=== PATIENT | male | born 1950 | race Caucasian/White ===

== ENCOUNTER 2017-05-15 16:05 | Emergency (ER) | payer OTHER ==
[2017-05-15] MEDS ORDERED: ACETAMINOPHEN 325 MG TABLET (FP) PO ONE (16:39)
[2017-05-15 16:44] VITALS: BMI 38.7
--- NOTE | 2017-05-15 16:44 | PDOC ---
Attending Attestation - Resident Resident Name: Madi Saxena - ED Attending Attestation I have performed the following: I have examined & evaluated the patient, The case was reviewed & discussed with the resident, I agree w/resident's findings & plan, Exceptions are as noted - HPI HPI: 66 yo M history HTN, afib, hemorrhagic CVA x3 presents s/p fall, sent by NH. He states that he fell as he was getting out of bed, landed on his buttocks. Denies any pain, denies head trauma. However, he states that he has a headache and stiff neck, similar to prior CVAs. Denies numbness, tingling, weakness. - Physicial Exam PE: GENERAL: Awake, alert, and fully oriented, in no acute distress HEAD: No signs of trauma EYES: PERRLA, EOMI, sclera anicteric, conjunctiva clear ENT: Auricles normal inspection, hearing grossly normal, nares patent, oropharynx clear without exudates. Moist mucosa NECK: Normal ROM, supple, no lymphadenopathy, JVD, or masses LUNGS: Breath sounds equal, clear to auscultation bilaterally. No wheezes, and no crackles HEART: Regular rate and rhythm, normal S1 and S2, no murmurs, rubs or gallops ABDOMEN: Soft, nontender, normoactive bowel sounds. No guarding, no rebound. No masses EXTREMITIES: Normal range of motion, no edema. No clubbing or cyanosis. No cords, erythema, or tenderness NEUROLOGICAL: Cranial nerves II through XII grossly intact. Normal speech, normal gait. Strength and sensation intact. SKIN: Warm, Dry, normal turgor, no rashes or lesions noted. - Medical Decision Making Pt with prior history of hemorrhagic CVA with headache, neck stiffness. Will obtain CTH.
[2017-05-15] MEDS ORDERED: ACETAMINOPHEN 325 MG TABLET (FP) ONE (16:50)
--- NOTE | 2017-05-15 16:55 | PDOC ---
History of Present Illness - General Chief Complaint: Injury Stated Complaint: FALL Time Seen by Provider: 05/15/17 16:14 - History of Present Illness Initial Comments: 05/15/17 16:45 Patient is a 66 year old male with a history of HTN, afib, cva (x3) s/p craniotomies who [facility]. The patient reports that he was getting out of bed when he slipped and fell onto his bottom. He denies any pain related to the fall, but states that upon waking this morning, he was experiencing a headache with associated neck stiffness. He states that he has had similar symptoms in the past with his previous hemorrhagic CVAs. He denies any numbness, tingling. He has residual weakness on the left side from his past CVA that is unchanged. He denies fevers, chills , SOB, chest pain, abdominal pain, or changes with bowel movements or urination. Past History - Past Medical History Allergies/Adverse Reactions: Allergies Allergy/AdvReac Type Severity Reaction Status Date / Time No Known Allergies Allergy Verified 11/21/14 06:30 Home Medications: Ambulatory Orders Acetaminophen 500 mg PO Q4H PRN 05/15/17 Atorvastatin Ca [Lipitor] 20 mg PO HS 05/15/17 Bacitracin - [Bacitracin Topical Ointment -] 1 applic TP DAILY 05/15/17 Clotrimazole 30 ml TP DAILY 05/15/17 Ferrous Sulfate 325 mg PO BID 05/15/17 Hydrochlorothiazide 25 mg PO DAILY 05/15/17 Insulin Glargine,Hum.rec.anlog [Lantus Solostar PEN (NF)] 20 units SQ HS Levothyroxine [Synthroid -] 25 mcg PO DAILY 05/15/17 Metformin HCl 1,000 mg PO BID 05/15/17 Metoprolol Tartrate 50 mg PO BID 05/15/17 Nystatin [Nyamyc] 15 gm TP DAILY 05/15/17 Silver Sulfadiazine [Silvadene] 1 applic TP DAILY 05/15/17 Cardiac Disorders: Yes (a-fib,mi 05/2011) CVA: Yes (X 7) Diabetes: Yes GI Disorders: Yes (stomach ulcer) HTN: Yes Suicide Attempt (Hx): No - Surgical History Abdominal Surgery: Yes (GASTRIC BYPASS) Neurologic Surgery: Yes (craniotomy 05/2007) - Family Disease History Family Disease History: Diabetes: Father, Heart Disease: Mother - Immunization History Td Vaccination: Yes TDAP Vaccination: No Immunization Up to Date: Yes - Psycho/Social/Smoking Cessation Hx Anxiety: No Suicidal Ideation: No Smoking History: Former smoker Have you smoked in the past 12 months: No If you are a former smoker, when did you quit?: at age 25 Information on smoking cessation initiated: No Hx Alcohol Use: No Drug/Substance Use Hx: No Substance Use Type: None Hx Substance Use Treatment: No Review of Systems - Review of Systems Constitutional: No: Chills, Fever HEENTM: No: Recent change in vision Respiratory: No: Cough, Shortness of Breath Cardiac (ROS): No: Chest Pain, Palpitations, Chest Tightness ABD/GI: No: Constipated, Diarrhea, Nausea, Vomiting : No: Dysuria Integumentary: No: Rash Neurological: No: Headache, Numbness, Tingling, Weakness *Physical Exam - Vital Signs Last Vital Signs Temp Pulse Resp BP Pulse Ox 98.7 F 80 18 180/84 99 05/15/17 16:28 05/15/17 16:28 05/15/17 16:28 05/15/17 16:28 05/15/17 16:28 - Physical Exam Comments: 05/15/17 16:58 General Appearance: Nourished. No Apparent Distress HEENT: EOMI, JASON. negative: Pharyngeal Erythema, Tonsillar Exudate, Tonsillar Erythema Neck: No Decreased range of motion, Lymphadenopathy Respiratory/Chest: Lungs Clear, Normal Breath Sounds. No Crackles, Rales, Rhonchi, Wheezing Cardiovascular: Regular Rhythm, Regular Rate. No Murmur, Gallop/S3, Gallop/S4 Gastrointestinal/Abdominal: Normal Bowel Sounds, Soft. No Guarding, Rebound, Tenderness Extremity: Normal Capillary Refill Integumentary: Normal Color, Dry, Warm Neurologic: bar porter II-XII NML intact, Fully Oriented, Alert, Normal Mood/Affect, Normal Response, Motor Strength 5/5 on the right. Motor Strength 4/4 on the left. No Facial Droop, Sensory Deficit, Normal Finger to Nose and Heel to [place] ED Treatment Course - RADIOLOGY Radiology Studies Ordered: Category Date Time Status HEAD CT WITHOUT CONTRAST [CT] Stat CT Scan 05/15/17 16:38 Ordered Medical Decision Making - Medical Decision Making 05/15/17 17:01 Patient is a 66 year old male with a history of HTN, afib, cva (x3) s/p craniotomies who [facility] a [facility]. Differential includes but is not limited to: Intracranial bleed, fracture, migraine. We will obtain a head CT and treat with tylenol and reevaluate. 05/15/17 18:55 Patient signed out to Dr. Morrissey. *DC/Admit/Observation/Transfer Diagnosis at time of Disposition: Fall from bed, initial encounter - Discharge Dispostion Disposition: HOME Condition at time of disposition: Improved - Referrals Referrals: Ciera Givens MD [Primary Care Provider] - - Patient Instructions Printed Discharge Instructions: How to Prevent Falls Additional Instructions: You were seen today for a fall from bed this morning. You initially had a headache and neck pain/stiffness so we did a CT scan of the head, which showed no new problems. We observed you for some time and gave you Tylenol, which helped with the pain. Your neck stiffness resolved and your repeated neurological exams were normal. We did shared decision making with you and as a team we decided not to do a spinal tap because the fall did not sound very serious, your neurological exams were normal, and your symptoms improved while you were here. Please return to the ED if there are ANY changes in your symptoms , or any new symptoms. This includes fever, vision changes, worsening headache, repeated neck stiffness, numbness, tingling, or weakness. Follow up with your regular doctor or return to the ED if needed.
--- NOTE | 2017-05-15 19:18 | PDOC ---
*Physical Exam - Vital Signs Pt signed out to me from excellent Dr. Kin Saxena. Pt is a 66 yo male with multiple hemorrhagic CVA who presents with VAUGHN and neck stiffness s/p falling out of bed. CT head W contrast results pending. Last Vital Signs Temp Pulse Resp BP Pulse Ox 98.7 F 80 18 180/84 99 05/15/17 16:28 05/15/17 16:28 05/15/17 16:28 05/15/17 16:28 05/15/17 16:28 05/15/17 19:14 - Physical Exam General Appearance: Yes: Nourished, Appropriately Dressed, Obese, Other (well- appearing, conversive, answering appropriately, alert and oriented, moving all extremities, enjoying a soccer game on TV, turning head without limitation in ROM). No: Apparent Distress HEENT: positive: EOMI, Normal Voice, Hearing Grossly Normal. negative: Scleral Icterus (R), Scleral Icterus (L), Nasal Congestion Neck: positive: Trachea midline, Supple. negative: Tender, Rigid Respiratory/Chest: positive: Lungs Clear, Normal Breath Sounds. negative: Respiratory Distress, Crackles, Rhonchi, Stridor, Wheezing Cardiovascular: positive: Regular Rhythm, Regular Rate. negative: Murmur Gastrointestinal/Abdominal: positive: Normal Bowel Sounds, Soft, Protuberent. negative: Tender, Organomegaly, Pulsatile Mass, Guarding Musculoskeletal: positive: Normal Inspection. negative: Decreased Range of Motion, Vertebral Tenderness Extremity: positive: Normal Capillary Refill, Normal Inspection, Normal Range of Motion. negative: Tender, Cyanosis Integumentary: positive: Normal Color, Dry, Warm. negative: Erythema, Rash, Bruising Neurologic: positive: sales merchandiser II-XII NML intact (mild right upper eyelid droop stated chronic), Fully Oriented, Alert, Normal Mood/Affect, Normal Response, Motor Strength 5/5, Finger to Nose (normal). negative: Facial Droop, Numbness, Sensory Deficit, Confused, Disoriented ED Treatment Course - Medications Given in the ED: ED Medications Discontinued Medications Generic Name Dose Route Start Last Admin Trade Name Freq PRN Reason Stop Dose Admin Acetaminophen 650 mg 05/15/17 16:39 05/15/17 16:51 Tylenol - PO 05/15/17 16:40 650 mg ONCE ONE Administration Medical Decision Making - Medical Decision Making Head CT without acute intracranial or skull pathology. Serial neurological exam unchanged. Neck stiffness has completely resolved on my final exam. The patient is offered lumbar puncture as shared decision making. States that he very much prefers not to have LP. 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 Full PARC is held and patient prefers to go home. He will f/u with his PCP or return for any change in symptoms. *DC/Admit/Observation/Transfer Diagnosis at time of Disposition: Fall from bed, initial encounter - Discharge Dispostion Admit: No - Referrals Referrals: Ciera Givens MD [Primary Care Provider] - - Patient Instructions Printed Discharge Instructions: How to Prevent Falls Additional Instructions: You were seen today for a fall from bed this morning. You initially had a headache and neck pain/stiffness so we did a CT scan of the head, which showed no new problems. We observed you for some time and gave you Tylenol, which helped with the pain. Your neck stiffness resolved and your repeated neurological exams were normal. We did shared decision making with you and as a team we decided not to do a spinal tap because the fall did not sound very serious, your neurological exams were normal, and your symptoms improved while you were here. Please return to the ED if there are ANY changes in your symptoms , or any new symptoms. This includes fever, vision changes, worsening headache, repeated neck stiffness, numbness, tingling, or weakness. Follow up with your regular doctor or return to the ED if needed.
[2017-05-15 21:04] VITALS: BP 172/86; PULSE 84; TEMP 98.4
== END 2017-05-15 23:44 | disposition home or self-care (01) ==
LOC: JER 16:05
DX: R51 Headache (principal); W06.XXXA Fall from bed, initial encounter; Y93.89 Activity, other specified; Y92.092 Bedroom in other non-institutional residence as the place of occurrence of the external cause; I10 Essential (primary) hypertension; I48.91 Unspecified atrial fibrillation; E11.9 Type 2 diabetes mellitus without complications; Z79.4 Long term (current) use of insulin; Z86.73 Personal history of transient ischemic attack (TIA), and cerebral infarction without residual deficits
CPT/HCPCS: 70450-TC; 99282-25